=== PATIENT | male | born 2000 | race Two or more races ===

== ENCOUNTER 2023-06-09 17:13 | Emergency (ER) | payer SELFPAY ==
[~2023-06-09] VITALS: Ht 188 cm; Wt 118.1 kg
[2023-06-09 17:13] VITALS: BP 138/81
[2023-06-09] MEDS ORDERED: SODIUM CHLORIDE 0.9% 1,000 ML IV ONE (17:45)
[2023-06-09] MEDS ORDERED: ONDANSETRON HCL 4 MG/2 ML VIAL IV ONE (17:45)
[2023-06-09] MEDS ORDERED: MECLIZINE HCL 25 MG TAB PO ONE (17:45)
== END 2023-06-09 20:15 | disposition left against medical advice (07) ==
LOC: ER 17:13
DX: R07.89 Other chest pain (principal); R42 Dizziness and giddiness; I10 Essential (primary) hypertension; Z53.29 Procedure and treatment not carried out because of patient's decision for other reasons